=== PATIENT | female | born 1985 | race Asian ===

== ENCOUNTER → 2019-09-04 | Outpatient (CLI) | payer OTHER ==
--- NOTE | 2019-09-05 11:21 | REP ---
Clinical: Pre-employment physical requirement . Comparison: None . Technique: PA and lateral. Findings: The mediastinum and cardiac silhouette are normal. The lung sheehan are clear and without acute consolidation, effusion, or pneumothorax. The skeletal structures are intact and normal. Impression: 1. No acute cardiopulmonary process. Electronically Signed by Ephraim Maurice MD 09/05/2019 05:10 A
== END ==
LOC: M WUC 15:43
PROVIDERS: ATTEND Family Medicine Adult Medicine
DX: Z11.1 Encounter for screening for respiratory tuberculosis (principal)

== ENCOUNTER → 2020-11-11 | Outpatient (CLI) | payer OTHER ==
[2020-11-11 14:25] LABS: PLATELET COUNT, AUTOMATED 301 10^3/uL (150-450)
[2020-11-11 14:40] LABS: INR 0.92; PROTHROMBIN TIME 12.5 SECONDS (12.5-14.3)
[2020-11-11 14:41] LABS: PARTIAL THROMBOPLASTIN TIME 30.7 SECONDS (24.2-38.5)
[2020-11-11 15:04] LABS: COLLAGEN EPINEPHRINE 127 SECONDS (74-162)
[2020-11-11 15:32] LABS: HCG, SERUM QUALITATIVE NEGATIVE (NEGATIVE)
== END ==
LOC: M LAB 13:37
PROVIDERS: ATTEND Physician Assistant
DX: M47.816 Spondylosis without myelopathy or radiculopathy, lumbar region (principal)

== ENCOUNTER 2021-09-25 20:48 | Emergency (ER) | payer OTHER ==
[~2021-09-25] VITALS: Ht 162.6 cm; Wt 85.5 kg
[2021-09-25] MEDS ORDERED: VITMTA PO (21:02)
[2021-09-25 23:04] VITALS: BP 140/77
[2021-09-25] MEDS ORDERED: LISI5TAB11 PO (23:24)
== END 2021-09-25 23:37 | disposition home or self-care (01) ==
LOC: M ED 20:48
DX: G44.209 Tension-type headache, unspecified, not intractable (principal); I10 Essential (primary) hypertension; Z20.822 Contact with and (suspected) exposure to COVID-19
CPT/HCPCS: 80048; 81001; 84702; 85025; 93005; 96360; 99284; U0003